=== PATIENT | male | born 1935 | race Caucasian/White ===

== ENCOUNTER 2019-12-27 05:19 | Inpatient (IN) | payer MEDICARE, BC ==
[2019-12-19 10:52] LABS: BASOPHILS # (AUTO) 0.1 X10'3 (0-0.2); BASOPHILS % (AUTO) 1.3 % (0-1); EOSINOPHILS # (AUTO) 0.3 X10'3 (0-0.9); EOSINOPHILS % (AUTO) 4.5 % (0-6); LYMPHOCYTES % (AUTO) 27.6 % (21-51); MEAN CORPUSCULAR HEMOGLOBIN 29.6 PG (27.0-31.0); MEAN CORPUSCULAR VOLUME 89.6 FL (78-98); MEAN PLATELET VOLUME 9.5 FL (7.4-10.4); MONOCYTES # (AUTO) 0.5 X10'3 (0-0.9); MONOCYTES % (AUTO) 6.9 % (2-12); NEUTROPHILS # (AUTO) 4.4 X10'3 (1.8-7.7); NEUTROPHILS % (AUTO) 59.7 % (42-75); PRE OP HEMATOCRIT 39.6 % (42.0-52.0); PRE OP HEMOGLOBIN 13.1 g/dL (14.0-17.9); PRE OP PLATELET COUNT 265 X10'3 (140-440); RED BLOOD COUNT 4.42 X10'6 (4.70-6.10); RED CELL DISTRIBUTION WIDTH 14.5 % (11.5-14.5)
[2019-12-19 11:03] LABS: PRE OP INR 1.1 INR; PRE OP PROTIME 11.2 SECONDS (9.0-12.0)
[2019-12-19 11:05] LABS: ALBUMIN 3.6 G/DL (3.4-5.0); ALBUMIN/GLOBULIN RATIO 0.9 (1.1-1.5); ALKALINE PHOSPHATASE 111 IU/L (46-116); BLOOD UREA NITROGEN 47 MG/DL (7-18); BUN/CREATININE RATIO 24.4 (5.4-32.0); CHLORIDE 106 MMOL/L (99-107); CREATININE 1.93 MG/DL (0.60-1.10); PRE OP ALT 42 U/L (30-65); PRE OP ANION GAP 7 (8-16); PRE OP AST 15 U/L (10-37); PRE OP BILIRUB, TOTAL 0.2 MG/DL (0.0-1.0); PRE OP GLUCOSE 148 MG/DL (70-104); PRE OP POTASSIUM 5.7 MMOL/L (3.4-5.1); PRE OP SODIUM 138 MMOL/L (135-145); TOTAL CARBON DIOXIDE 25.1 MMOL/L (24-32); TOTAL PROTEIN 7.5 G/DL (6.4-8.2); eGFR 33 ML/MIN
[2019-12-19 12:36] LABS: HEMOGLOBIN A1C 7.1 % (4.5-6.2)
[2019-12-27] VITALS (17 sets, daily range): BP systolic 122–167; BP diastolic 50–85
[~2019-12-27] VITALS: Ht 182.9 cm; Wt 117.9 kg
[~2019-12-27 05:19] MED LIST: BENA1TAB14 PO; DICL75TA5 PO; FURO20TA4 PO; GABA600T13 PO; GLIM4TAB7 PO; INSU100I40 SUBCUT; LOVA40TA2 PO; OMEP40CA13 PO; SITA1TBM7 PO; ringers solution, lacted 1,000 ML IV SCH
[2019-12-27] MEDS ORDERED: famotidine 20mg tablet PO ONE (05:30)
[2019-12-27] MEDS ORDERED: vancomycin 1,500 MG in NS 300ml IV soln IV ONE (05:30)
[2019-12-27] MEDS ORDERED: ceFAZolin 2gm in dextrose, iso 50 ML IV ONE (05:30)
[2019-12-27] MEDS ORDERED: LIDOcaine 1% (10mg/ml) 2ml vial ONE (05:42)
[2019-12-27] MEDS ORDERED: TRANEXAMIC ACID 1 GM IN NACL,ISO-OS 100 ML IV ONE (06:00)
[2019-12-27 06:40] LABS: ISTAT CREATININE 2.1 mg/dL (0.8-1.3); ISTAT HGB 12.9 g/dl (14.0-18.0); ISTAT IONIZED CALCIUM 1.27 mmol/L (1.03-1.32); ISTAT K 5.1 mmol/L (3.5-5.1); POC BUN/CREATININE RATIO 19.5 (5.4-32.0)
[2019-12-27] MEDS ORDERED: ceFAZolin inj. 3,000 MG in sodium chloride irrig. sol 3,000 ML IR ONE ×2 (06:40→07:00)
[2019-12-27] MEDS ORDERED: normal saline 1000ml 1,000 ML IV SCH (06:55)
[2019-12-27] MEDS ORDERED: ASPI-529 PO (07:03)
[2019-12-27] MEDS ORDERED: fentaNYL/PF 50MCG/1 ML 2ML syringe ONE (07:31)
[2019-12-27] MEDS ORDERED: MIDAZolam 5mg/5ml vial ONE (07:31)
[2019-12-27] MEDS ORDERED: propofol inj 20 ML IV ONE (08:00)
[2019-12-27] MEDS ORDERED: morphine 2 MG/ML inj. syringe IV PRN (09:10)
[2019-12-27] MEDS ORDERED: ROPIVAcaine 0.2% (10 MG/5 ML) BOLUS INJECTION ADDCANAL PRN (09:10)
[2019-12-27] MEDS ORDERED: ringers solution, lacted 1,000 ML IV SCH (09:10)
[2019-12-27] MEDS ORDERED: ondansetron/PF 4mg/2ml inj IV PRN ×2 (09:10→10:50)
[2019-12-27] MEDS ORDERED: proCHLORperazine 10 MG/2 ml inj IV PRN (09:10)
[2019-12-27] MEDS ORDERED: meperidine/PF 25mg/ml syringe IV PRN ×3 (09:10)
[2019-12-27] MEDS ORDERED: morphine 4 MG/ML inj SYRINge IV PRN (09:10)
[2019-12-27] MEDS ORDERED: ROPIVAcaine 0.5% (5mg/ml) 30ml vial ONE (10:04)
[2019-12-27 10:05] LABS: APPEARANCE,SYNOVIAL FLUID HAZY; COLOR,SYNOVIAL FLUID YELLOW
[2019-12-27 10:06] LABS: LYMPHOCYTES,SYNOVIAL FLUID 84 % (0-75); MONOCYTES,SYNOVIAL FLUID 3 % (0-0); NEUTROPHILS,SYNOVIAL FLUID 3 % (0-25); SYN RBC 1020 /CU MM (0); SYN WBC 550 /CU MM (0-200); SYNOVIAL LINING CELLS FEW
[2019-12-27] MEDS ORDERED: diphenhydrAMINE 50 mg/ml inj ONE (10:06)
[2019-12-27] MEDS ORDERED: dexamethasone sod phosphate 4mg/ml inj. ONE (10:06)
[2019-12-27] MEDS ORDERED: acetaminophen 325mg tablet PO PRN (10:50)
[2019-12-27] MEDS ORDERED: magnesium hydroxide 30ml (MOM) UD suspension PO PRN (10:50)
[2019-12-27] MEDS ORDERED: bisacodyl 10mg suppository rectal RC PRN (10:50)
[2019-12-27] MEDS ORDERED: diphenhydrAMINE 25mg capsule PO PRN ×2 (10:50)
[2019-12-27] MEDS ORDERED: glucagon, human recombinant 1mg kit SUBCUT PRN (10:55)
[2019-12-27] MEDS ORDERED: dextrose 50%-water 50ml dispensing syringe IV PRN ×2 (10:55)
[2019-12-27] MEDS ORDERED: dextrose ORAL solution 15 GM/59 ML bottle PO PRN ×2 (10:55)
[2019-12-27] MEDS ORDERED: MESSAGE TO PHARMACY PO ONE (10:55)
--- NOTE | 2019-12-27 10:55 | NUR ---
Received from OR via BED, accompanied by Anesthesiologist and report given by Anesthesiolgist. PATIENT A&OX4, DENIES PAIN, V/S WNL, NEUROVASCULAR CHECKS INTACT, SCD ON, 20G PIV LUE, LEFT ELAINA DRESSING KNEE WRAP POWDER PACK CDI W/ ONQ BALL AT 4ML/HR. SENSATIONS AT T12
[2019-12-27] MEDS: ROPIVAcaine 0.2%/PF PUMP/bolus 550 ML ADDCANAL SCH (10:59)
--- NOTE | 2019-12-27 11:45 | NUR ---
PATIENT A&OX4, DENIES PAIN, V/S WNL, NEUROVASCULAR CHECKS INTACT, SCD ON, 20G PIV LUE, LEFT ELAINA DRESSING KNEE WRAP POWDER PACK CDI W/ ONQ BALL AT 4ML/HR. FULL . SENSATIONS .PATIENT TAKEN TO 4007 WITH ALL BELONGINGS AND HOOKED UP TO MONITORS IN ROOM AND REPORT GIVEN TO CLIENT SUPPORT ASSOCIATE WHO HAS TAKEN OVER PATIENT CARE.
--- NOTE | 2019-12-27 14:58 | NUR ---
Pt with A1c 7.1%, DM education not warranted at this time given well controlled for geriatric age. Will continue to follow. Addendum: 12/27/19 at [address] Amended: Links added.
[2019-12-27] MEDS: aspirin 81mg tablet.DR PO SCH (16:48)
[2019-12-27] MEDS: ceFAZolin/D5W- 1GM premix 50 ML IV SCH (16:49)
[2019-12-27] MEDS: normal saline 1000ml 1,000 ML IV SCH ×2 (16:49→21:00)
[2019-12-27] MEDS: HYDROcodone/acetaminophen 10/325mg tab PO PRN ×3 (17:46→22:12)
--- NOTE | 2019-12-27 17:50 | NUR ---
One norco given at 17:46, meditech went down before "save" was processed. Selected "administer' from nurse's station computer to ensure nuclear medicine tech was documented. per private secretary, the entire Wifi system was down. [employer] was not working until approximately 22:00 (per dowel pointer staff). Spoke with pharmacy regarding meditech issue. Currently working to fix the issue.
--- NOTE | 2019-12-27 18:30 | NUR ---
Problems reprioritized. Patient report given, questions answered & plan of care reviewed with Dennise.
--- NOTE | 2019-12-27 18:35 | NUR ---
Patient in room ORTHO 4007. I have received report from Nelsy WERNER and had the opportunity to ask questions and assume patient care.
[2019-12-27] MEDS: insulin Lispro (HumaLOG) vial - multi-dose SQ SCH (18:57)
[2019-12-27] MEDS: sennosides 8.6mg tablet PO SCH (20:54)
[2019-12-27] MEDS: gabapentin 400mg capsule PO SCH (20:54)
[2019-12-27] MEDS: lisinopril 20mg tablet PO SCH (20:55)
[2019-12-27] MEDS: HYDROchlorothiazide 12.5mg capsule PO SCH (20:58)
[2019-12-27] MEDS: HYDROmorphone 1 mg/ml syringe IV PRN (21:01)
[2019-12-27] MEDS: insulin glargine (Lantus) pen - multi-dose SQ SCH (21:08)
[2019-12-28] MEDS: ceFAZolin/D5W- 1GM premix 50 ML IV SCH (00:08)
[2019-12-28] MEDS: normal saline 1000ml 1,000 ML IV SCH ×2 (01:22→17:00)
[2019-12-28 02:00] VITALS: BP 148/60
[2019-12-28] MEDS: HYDROcodone/acetaminophen 10/325mg tab PO PRN ×5 (02:36→21:23)
[2019-12-28] MEDS: HYDROmorphone 1 mg/ml syringe IV PRN (05:43)
--- NOTE | 2019-12-28 06:23 | NUR ---
Problems reprioritized. Patient report given, questions answered & plan of care reviewed with Nelsy WERNER.
[2019-12-28 06:28] VITALS: BP 151/56
--- NOTE | 2019-12-28 06:29 | NUR ---
Patient in room ORTHO 4007. I have received report from [facility] and had the opportunity to ask questions and assume patient care.
[2019-12-28] MEDS: aspirin 81mg tablet.DR PO SCH ×2 (07:21→17:22)
[2019-12-28] MEDS: pantoprazole 40mg Tablet.DR PO SCH (07:22)
[2019-12-28] MEDS: HYDROchlorothiazide 12.5mg capsule PO SCH ×2 (07:23→20:33)
[2019-12-28] MEDS: furosemide 20MG tablet PO SCH (07:23)
[2019-12-28] MEDS: lisinopril 20mg tablet PO SCH ×2 (07:24→20:33)
--- NOTE | 2019-12-28 08:34 | NUR ---
DM consult: Patient's A1c has already been addressed, see below. Pt with A1c 7.1%, DM education not warranted at this time given well controlled for geriatric age. Will continue to follow. Addendum: 12/28/19 at [address] Amended: Links added.
[2019-12-28 08:38] LABS: BASOPHILS # (AUTO) 0.1 X10'3 (0-0.2); BASOPHILS % (AUTO) 0.8 % (0-1); EOSINOPHILS # (AUTO) 0.1 X10'3 (0-0.9); HEMATOCRIT 36.6 % (42.0-52.0); HEMOGLOBIN 11.9 g/dl (14.0-17.9); LYMPHOCYTES # (AUTO) 1.9 X10'3 (1.1-4.8); LYMPHOCYTES % (AUTO) 22.3 % (21-51); MEAN CORPUSCULAR HEMOGLOBIN 29.1 PG (27.0-31.0); MEAN CORPUSCULAR HGB CONC 32.6 g/dL (33.0-36.5); MEAN CORPUSCULAR VOLUME 89.3 FL (78-98); MEAN PLATELET VOLUME 9.2 FL (7.4-10.4); MONOCYTES # (AUTO) 0.9 X10'3 (0-0.9); MONOCYTES % (AUTO) 10.8 % (2-12); NEUTROPHILS # (AUTO) 5.6 X10'3 (1.8-7.7); NEUTROPHILS % (AUTO) 65.1 % (42-75); PLATELET COUNT 281 X10'3 (140-440); RED CELL DISTRIBUTION WIDTH 14.3 % (11.5-14.5); WHITE BLOOD COUNT 8.7 X10'3 (4.5-11.0)
[2019-12-28] MEDS: insulin Lispro (HumaLOG) vial - multi-dose SQ SCH ×4 (08:39→21:22)
[2019-12-28 09:06] LABS: ALANINE AMINOTRANSFERASE 27 U/L (12-78); ALBUMIN 3.4 G/DL (3.4-5.0); ALBUMIN/GLOBULIN RATIO 0.9 (1.1-1.5); ALKALINE PHOSPHATASE 107 IU/L (46-116); ANION GAP 11 (8-16); ASPARTATE AMINO TRANSFERASE 13 U/L (10-37); BILIRUBIN,TOTAL 0.3 MG/DL (0.1-1.0); BLOOD UREA NITROGEN 26 MG/DL (7-18); BUN/CREATININE RATIO 15.2 (5.4-32.0); CALCIUM 8.9 MG/DL (8.5-10.1); CHLORIDE 107 MMOL/L (99-107); CREATININE 1.71 MG/DL (0.60-1.10); GLUCOSE 206 MG/DL (70-104); SODIUM 140 MMOL/L (135-145); TOTAL CARBON DIOXIDE 22.4 MMOL/L (24-32); TOTAL PROTEIN 7.1 G/DL (6.4-8.2); eGFR 38 ML/MIN
[2019-12-28 10:02] VITALS: BP 98/43
[2019-12-28 14:00] VITALS: BP 139/86
[2019-12-28 18:00] VITALS: BP 123/52
--- NOTE | 2019-12-28 18:03 | NUR ---
Problems reprioritized. Patient report given, questions answered & plan of care reviewed with Dennise.
--- NOTE | 2019-12-28 18:30 | NUR ---
Patient in room ORTHO 4007. I have received report from Nelsy WERNER and had the opportunity to ask questions and assume patient care.
[2019-12-28] MEDS: gabapentin 400mg capsule PO SCH (20:33)
[2019-12-28] MEDS: sennosides 8.6mg tablet PO SCH (20:34)
[2019-12-28] MEDS: insulin glargine (Lantus) pen - multi-dose SQ SCH (21:20)
[2019-12-29] MEDS: normal saline 1000ml 1,000 ML IV SCH (03:00)
[2019-12-29] MEDS: ROPIVAcaine 0.2%/PF PUMP/bolus 550 ML ADDCANAL SCH (03:24)
[2019-12-29] MEDS: HYDROcodone/acetaminophen 10/325mg tab PO PRN (05:49)
[2019-12-29 06:05] LABS: BASOPHILS % (AUTO) 0.6 % (0-1); EOSINOPHILS # (AUTO) 0.1 X10'3 (0-0.9); EOSINOPHILS % (AUTO) 1.4 % (0-6); HEMATOCRIT 33.3 % (42.0-52.0); HEMOGLOBIN 11.2 g/dl (14.0-17.9); LYMPHOCYTES # (AUTO) 1.5 X10'3 (1.1-4.8); LYMPHOCYTES % (AUTO) 18.2 % (21-51); MEAN CORPUSCULAR HGB CONC 33.7 g/dL (33.0-36.5); MEAN CORPUSCULAR VOLUME 88.8 FL (78-98); MEAN PLATELET VOLUME 9.4 FL (7.4-10.4); MONOCYTES % (AUTO) 12.1 % (2-12); NEUTROPHILS # (AUTO) 5.7 X10'3 (1.8-7.7); NEUTROPHILS % (AUTO) 67.7 % (42-75); PLATELET COUNT 254 X10'3 (140-440); RED BLOOD COUNT 3.75 X10'6 (4.70-6.10); RED CELL DISTRIBUTION WIDTH 14.4 % (11.5-14.5); WHITE BLOOD COUNT 8.4 X10'3 (4.5-11.0)
--- NOTE | 2019-12-29 06:15 | NUR ---
Patient in room ORTHO 4007. I have received report from [facility] and had the opportunity to ask questions and assume patient care.
--- NOTE | 2019-12-29 06:31 | NUR ---
Problems reprioritized. Patient report given, questions answered & plan of care reviewed with Nelsy WERNER.
[2019-12-29 06:36] VITALS: BP 143/64
[2019-12-29 07:02] LABS: ALANINE AMINOTRANSFERASE 88 U/L (12-78); ALBUMIN 3.1 G/DL (3.4-5.0); ALBUMIN/GLOBULIN RATIO 0.8 (1.1-1.5); ALKALINE PHOSPHATASE 110 IU/L (46-116); ANION GAP 11 (8-16); ASPARTATE AMINO TRANSFERASE 90 U/L (10-37); BILIRUBIN,TOTAL 0.6 MG/DL (0.1-1.0); BLOOD UREA NITROGEN 27 MG/DL (7-18); BUN/CREATININE RATIO 14.7 (5.4-32.0); CALCIUM 8.9 MG/DL (8.5-10.1); CHLORIDE 107 MMOL/L (99-107); CREATININE 1.84 MG/DL (0.60-1.10); GLUCOSE 149 MG/DL (70-104); POTASSIUM 4.7 MMOL/L (3.5-5.1); SODIUM 140 MMOL/L (135-145); TOTAL CARBON DIOXIDE 22.5 MMOL/L (24-32); TOTAL PROTEIN 6.9 G/DL (6.4-8.2); eGFR 35 ML/MIN
[2019-12-29] MEDS: pantoprazole 40mg Tablet.DR PO SCH (07:36)
[2019-12-29] MEDS: aspirin 81mg tablet.DR PO SCH (07:36)
[2019-12-29] MEDS: HYDROchlorothiazide 12.5mg capsule PO SCH (07:37)
[2019-12-29] MEDS: furosemide 20MG tablet PO SCH (07:37)
[2019-12-29] MEDS: lisinopril 20mg tablet PO SCH (07:38)
[2019-12-29] MEDS: insulin Lispro (HumaLOG) vial - multi-dose SQ SCH (08:58)
[2019-12-29 10:01] VITALS: BP 131/75
--- NOTE | 2019-12-29 11:15 | NUR ---
Reviewed discharge instructions with pt. Pt verbalized understanding. Pt was dressed and wheeled downstairs to be driven home by his spouse. All of pt's belongings were returned to pt.
== END 2019-12-29 11:10 | disposition home or self-care (01) | DRG 468 ==
LOC: PAS IN 05:19 → UNDOADMIN 05:19 → EDSTATUS 07:30 → PAS IN 10:47 → ORTHO 4S 11:30 → PAS IN 11:30
PROVIDERS: ADMIT Orthopaedic Surgery; ATTEND Orthopaedic Surgery
PROC: 0SRW0JZ Replacement of Left Knee Joint, Tibial Surface with Synthetic Substitute, Open Approach (ICD-10-PCS; 2019-12-27)
PROC: 3E0T3BZ Introduction of Anesthetic Agent into Peripheral Nerves and Plexi, Percutaneous Approach (ICD-10-PCS; 2019-12-27)
PROC: 0SPW0JZ Removal of Synthetic Substitute from Left Knee Joint, Tibial Surface, Open Approach (ICD-10-PCS; principal; 2019-12-27 07:30)
DX: T84.093A Other mechanical complication of internal left knee prosthesis, initial encounter (principal); Y79.2 Prosthetic and other implants, materials and accessory orthopedic devices associated with adverse incidents; Y92.89 Other specified places as the place of occurrence of the external cause; Z79.899 Other long term (current) drug therapy; Z79.82 Long term (current) use of aspirin; D50.0 Iron deficiency anemia secondary to blood loss (chronic)
CPT/HCPCS: 36415; 80047; 80053; 82948; 83036; 85025; 85610; 85730; 86885; 86900; 86901; 86920; 87070; 87075; 87081; 87635; 89051; 97110; 97161; 97530; A6223; A6258; A6449; A7000; A9272; C1713; C1758; C1776; G0378; J0690; J1100; J1170; J1200; J1815; J2001; J2250; J2704; J2795; J3010; J3370; J7030; J7040; J7120; Q0163

== ENCOUNTER 2023-10-25 12:15 | Inpatient (IN) | payer MEDICARE, BC ==
[~2023-10-25] VITALS: Ht 182.9 cm; Wt 107.0 kg
[~2023-10-25 12:15] MED LIST changes: +ATOR-2 PO; -BENA1TAB14 PO; +BENA20TA2 PO; +CARV6.253 PO; +DICL-182 PO; -DICL75TA5 PO; +FLO0.4C PO; -FURO20TA4 PO; +GLIM4TAB PO; -GLIM4TAB7 PO; +HUM100VI4 SQ; -INSU100I40 SUBCUT; +KEN0.1O TOP; -LOVA40TA2 PO; -OMEP40CA13 PO; +OMEP40CA21 PO; -SITA1TBM7 PO; -ringers solution, lacted 1,000 ML IV SCH
[2023-10-25] MEDS: ondansetron 4mg rapidly disintigrating tab PO ONE (13:42)
[2023-10-25] MEDS: HYDROcodone/acetaminophen 5mg/325mg tablet PO ONE ×2 (13:43→13:48)
[2023-10-25 15:40] LABS: BASOPHILS # (AUTO) 0.1 X10'3 (0-0.2); BASOPHILS % (AUTO) 1.3 % (0-1); EOSINOPHILS # (AUTO) 0.2 X10'3 (0-0.9); EOSINOPHILS % (AUTO) 4.2 % (0-6); HEMATOCRIT 39.5 % (42.0-52.0); HEMOGLOBIN 12.8 g/dl (14.0-17.9); LYMPHOCYTES # (AUTO) 1.5 X10'3 (1.1-4.8); LYMPHOCYTES % (AUTO) 25.5 % (21-51); MEAN CORPUSCULAR HEMOGLOBIN 29.2 PG (27.0-31.0); MEAN CORPUSCULAR HGB CONC 32.3 g/dL (33.0-36.5); MEAN CORPUSCULAR VOLUME 90.5 FL (78-98); MEAN PLATELET VOLUME 8.9 FL (7.4-10.4); MONOCYTES # (AUTO) 0.5 X10'3 (0-0.9); MONOCYTES % (AUTO) 8.1 % (2-12); NEUTROPHILS # (AUTO) 3.5 X10'3 (1.8-7.7); NEUTROPHILS % (AUTO) 60.9 % (42-75); PLATELET COUNT 286 X10'3 (140-440); RED BLOOD COUNT 4.37 X10'6 (4.70-6.10); RED CELL DISTRIBUTION WIDTH 15.1 % (11.5-14.5); WHITE BLOOD COUNT 5.8 X10'3 (4.5-11.0)
[2023-10-25 15:52] LABS: ALANINE AMINOTRANSFERASE 30 U/L (12-78); ALBUMIN 3.1 G/DL (3.4-5.0); ALBUMIN/GLOBULIN RATIO 0.8 (1.1-1.5); ALKALINE PHOSPHATASE 94 IU/L (46-116); ANION GAP 9 (8-16); ASPARTATE AMINO TRANSFERASE 16 U/L (10-37); BILIRUBIN,TOTAL 0.2 MG/DL (0.1-1.0); BLOOD UREA NITROGEN 31 MG/DL (7-18); BUN/CREATININE RATIO 17.4 (10.0-20.0); CALCIUM 8.8 MG/DL (8.5-10.1); CHLORIDE 108 MMOL/L (99-107); CREATININE 1.78 MG/DL (0.60-1.10); GLUCOSE 123 MG/DL (70-104); POTASSIUM 5.9 MMOL/L (3.5-5.1); SODIUM 138 MMOL/L (135-145); TOTAL CARBON DIOXIDE 21.4 MMOL/L (24-32); TOTAL PROTEIN 6.8 G/DL (6.4-8.2); eCRCL 32 ML/MIN; eGFR 36 ML/MIN
[2023-10-25] MEDS ORDERED: magnesium hydroxide 30ml (MOM) UD suspension PO PRN (16:30)
[2023-10-25] MEDS ORDERED: HYDROmorphone/PF 0.2 MG/ML SYRINGE IV PRN (16:30)
[2023-10-25] MEDS ORDERED: acetaminophen 325mg tablet PO PRN ×2 (16:30)
[2023-10-25] MEDS ORDERED: dextrose 50%-water 50ml dispensing syringe IV PRN ×2 (16:30)
[2023-10-25] MEDS ORDERED: mag hydrox/Alum hydrox/simeth 30ml oral suspension PO PRN (16:30)
[2023-10-25] MEDS ORDERED: ondansetron/PF 4mg/2ml inj IV PRN (16:30)
[2023-10-25] MEDS ORDERED: magnesium sulf-water 4G/100mL 100 ML IV PRN (16:30)
[2023-10-25] MEDS ORDERED: DEXTROSE 15 GM of carb/4 tabs (each vial/BOTTLE has 4 tablets) PO PRN ×2 (16:30)
[2023-10-25] MEDS ORDERED: potassium Cl 20 mEq SR tablet PO PRN ×2 (16:30)
[2023-10-25] MEDS ORDERED: glucagon, human recombinant 1mg kit SUBCUT PRN (16:30)
[2023-10-25] MEDS ORDERED: magnesium sulf-water 2g/50mL 50 ML IV PRN (16:30)
[2023-10-25] MEDS ORDERED: potassium Cl 40MEQ/1/2NS 520ml 520 ML IV PRN (16:30)
[2023-10-25] MEDS: INSULIN LISPRO 100 UNIT/ML INSULN.PEN MULTI-DOSE SQ SCH (17:00)
[2023-10-25] MEDS: calcium chloride 100 MG/1 ML inj IV ONE (17:30)
[2023-10-25] MEDS ORDERED: hydrALAZINE 20mg/ml inj. IV PRN (17:35)
[2023-10-25] MEDS: HYDROcodone/acetaminophen 5mg/325mg tablet PO PRN (17:59)
[2023-10-25] MEDS: docusate sod 100mg capsule PO SCH (20:00)
[2023-10-25] MEDS: heparin, porcine 5000 units/ml vial SQ SCH (20:00)
[2023-10-25] MEDS: K and/or MAG REPLACEMENT MC SCH (20:00)
[2023-10-25] MEDS: oxyCODONE/APAP 10/325mg tablet PO PRN (21:07)
[2023-10-25] MEDS: normal saline 1000ml 1,000 ML IV SCH (21:17)
[2023-10-25] MEDS: CALCIUM GLUC 1gm/50ml NACL,iso 50 ML IV STA (21:19)
[2023-10-25 21:40] LABS: ALBUMIN 3.1 G/DL (3.4-5.0); ANION GAP 6 (8-16); BLOOD UREA NITROGEN 30 MG/DL (7-18); BUN/CREATININE RATIO 16.7 (10.0-20.0); CHLORIDE 109 MMOL/L (99-107); GLUCOSE 81 MG/DL (70-104); POTASSIUM 5.5 MMOL/L (3.5-5.1); SODIUM 142 MMOL/L (135-145); eCRCL 32 ML/MIN; eGFR 36 ML/MIN
[2023-10-25] MEDS: dextrose 50%-water 50ml dispensing syringe IV ONE (22:41)
[2023-10-25] MEDS: insulin regular, human 10 units/0.1 ml syringe IV ONE (22:53)
[2023-10-26] MEDS: albuterol 2.5 MG/3 ML nebule CONTNEB ONE
[2023-10-26] MEDS: HYDROcodone/acetaminophen 10/325mg tab PO PRN (02:46)
[2023-10-26 02:50] VITALS: BP 175/68; PULSE 67; RESP 16; TEMP 98.3; O2SAT 98
[2023-10-26] MEDS ORDERED: GABA300C PO (04:05)
[2023-10-26] MEDS ORDERED: FURO-150 PO (04:05)
[2023-10-26 05:36] LABS: BASOPHILS # (AUTO) 0.1 X10'3 (0-0.2); BASOPHILS % (AUTO) 0.8 % (0-1); EOSINOPHILS # (AUTO) 0.2 X10'3 (0-0.9); EOSINOPHILS % (AUTO) 3.5 % (0-6); HEMATOCRIT 37.4 % (42.0-52.0); HEMOGLOBIN 12.3 g/dl (14.0-17.9); LYMPHOCYTES # (AUTO) 1.7 X10'3 (1.1-4.8); LYMPHOCYTES % (AUTO) 23.9 % (21-51); MEAN CORPUSCULAR HEMOGLOBIN 29.8 PG (27.0-31.0); MEAN CORPUSCULAR HGB CONC 32.8 g/dL (33.0-36.5); MEAN CORPUSCULAR VOLUME 90.8 FL (78-98); MONOCYTES # (AUTO) 0.6 X10'3 (0-0.9); MONOCYTES % (AUTO) 9.1 % (2-12); NEUTROPHILS # (AUTO) 4.3 X10'3 (1.8-7.7); NEUTROPHILS % (AUTO) 62.7 % (42-75); PLATELET COUNT 268 X10'3 (140-440); RED BLOOD COUNT 4.12 X10'6 (4.70-6.10); RED CELL DISTRIBUTION WIDTH 14.8 % (11.5-14.5); WHITE BLOOD COUNT 6.9 X10'3 (4.5-11.0)
[2023-10-26 05:42] LABS: ALANINE AMINOTRANSFERASE 29 U/L (12-78); ALBUMIN 2.9 G/DL (3.4-5.0); ALBUMIN/GLOBULIN RATIO 0.9 (1.1-1.5); ALKALINE PHOSPHATASE 87 IU/L (46-116); ANION GAP 10 (8-16); ASPARTATE AMINO TRANSFERASE 15 U/L (10-37); BILIRUBIN,TOTAL 0.2 MG/DL (0.1-1.0); BLOOD UREA NITROGEN 27 MG/DL (7-18); BUN/CREATININE RATIO 15.4 (10.0-20.0); CALCIUM 8.9 MG/DL (8.5-10.1); CHLORIDE 109 MMOL/L (99-107); CREATININE 1.75 MG/DL (0.60-1.10); GLUCOSE 180 MG/DL (70-104); MAGNESIUM 1.7 MG/DL (1.5-2.4); POTASSIUM 5.4 MMOL/L (3.5-5.1); SODIUM 142 MMOL/L (135-145); TOTAL CARBON DIOXIDE 23.5 MMOL/L (24-32); TOTAL PROTEIN 6.3 G/DL (6.4-8.2); eCRCL 33 ML/MIN; eGFR 37 ML/MIN
[2023-10-26 06:00] VITALS: BP 152/48; PULSE 71; RESP 13; TEMP 98.3; O2SAT 98
[2023-10-26 08:00] VITALS: RESP 18; O2SAT 98
[2023-10-26] MEDS: gabapentin 300mg capsule PO ONE (13:08)
[2023-10-26] MEDS: HYDROmorphone inj. 0.5 MG/0.5 ML DISP.SYRIN IV PRN (14:25)
[2023-10-26] MEDS: pneumococcal 23-VAL P-sac vacc 25 mcg/0.5ml vial IMVAC ONE (17:07)
[2023-10-26 18:00] VITALS: BP 158/65; PULSE 60; RESP 18; TEMP 97.4; O2SAT 98
[2023-10-26] MEDS: cyclobenzaprine 10mg tablet PO ONE (19:50)
[2023-10-26 20:00] VITALS: RESP 18; O2SAT 98
[2023-10-26] MEDS: carvedilol 6.25mg tablet PO SCH (20:58)
[2023-10-26] MEDS: gabapentin 300mg capsule PO SCH (20:58)
[2023-10-26] MEDS: atorvastatin 20mg tablet PO SCH (20:59)
[2023-10-26 22:00] VITALS: BP 158/75; PULSE 71; RESP 16; TEMP 97.2; O2SAT 99
[2023-10-27 07:11] LABS: BASOPHILS % (AUTO) 0.5 % (0-1); EOSINOPHILS # (AUTO) 0.2 X10'3 (0-0.9); EOSINOPHILS % (AUTO) 2.7 % (0-6); HEMATOCRIT 39.8 % (42.0-52.0); HEMOGLOBIN 12.7 g/dl (14.0-17.9); LYMPHOCYTES # (AUTO) 1.4 X10'3 (1.1-4.8); LYMPHOCYTES % (AUTO) 19.8 % (21-51); MEAN CORPUSCULAR HEMOGLOBIN 28.9 PG (27.0-31.0); MEAN CORPUSCULAR VOLUME 90.3 FL (78-98); MEAN PLATELET VOLUME 8.7 FL (7.4-10.4); MONOCYTES # (AUTO) 0.7 X10'3 (0-0.9); MONOCYTES % (AUTO) 10.2 % (2-12); NEUTROPHILS # (AUTO) 4.6 X10'3 (1.8-7.7); NEUTROPHILS % (AUTO) 66.8 % (42-75); PLATELET COUNT 275 X10'3 (140-440); RED BLOOD COUNT 4.41 X10'6 (4.70-6.10); RED CELL DISTRIBUTION WIDTH 14.4 % (11.5-14.5); WHITE BLOOD COUNT 6.9 X10'3 (4.5-11.0)
[2023-10-27 07:19] LABS: ALANINE AMINOTRANSFERASE 24 U/L (12-78); ALBUMIN 2.9 G/DL (3.4-5.0); ALBUMIN/GLOBULIN RATIO 0.8 (1.1-1.5); ALKALINE PHOSPHATASE 93 IU/L (46-116); ANION GAP 7 (8-16); ASPARTATE AMINO TRANSFERASE 13 U/L (10-37); BILIRUBIN,TOTAL 0.4 MG/DL (0.1-1.0); BLOOD UREA NITROGEN 22 MG/DL (7-18); CALCIUM 9.1 MG/DL (8.5-10.1); CHLORIDE 109 MMOL/L (99-107); CREATININE 1.57 MG/DL (0.60-1.10); GLUCOSE 183 MG/DL (70-104); MAGNESIUM 1.6 MG/DL (1.5-2.4); SODIUM 139 MMOL/L (135-145); TOTAL PROTEIN 6.5 G/DL (6.4-8.2); eCRCL 36 ML/MIN; eGFR 42 ML/MIN
[2023-10-27 07:22] LABS: POTASSIUM 6.1 MMOL/L (3.5-5.1)
[2023-10-27] MEDS: furosemide 20MG tablet PO SCH (07:32)
[2023-10-27] MEDS: pantoprazole 40mg Tablet.DR PO SCH (07:32)
[2023-10-27] MEDS ORDERED: calcium chloride 100 MG/1 ML inj IV ONE (07:50)
[2023-10-27] MEDS: albuterol 2.5 MG/3 ML nebule CONTNEB SCH (07:50)
[2023-10-27 08:00] VITALS: RESP 17; O2SAT 97
[2023-10-27] MEDS: insulin regular, human 10 units/0.1 ml syringe IV ONE (08:28)
[2023-10-27] MEDS: dextrose 50%-water 50ml dispensing syringe IV ONE (08:36)
[2023-10-27] MEDS: furosemide 40mg/4ml inj IV ONE (08:40)
[2023-10-27] MEDS: CALCIUM GLUC 1gm/50ml NACL,iso 50 ML IV ONE (08:41)
[2023-10-27 10:00] VITALS: BP 108/88; PULSE 56; RESP 16; TEMP 97.3; O2SAT 97
[2023-10-27] MEDS ORDERED: albuterol 2.5 MG/3 ML nebule CONTNEB PRN (13:35)
[2023-10-27 14:18] LABS: ANION GAP 7 (8-16); BLOOD UREA NITROGEN 24 MG/DL (7-18); BUN/CREATININE RATIO 13.5 (10.0-20.0); CALCIUM 9.4 MG/DL (8.5-10.1); CHLORIDE 107 MMOL/L (99-107); CREATININE 1.78 MG/DL (0.60-1.10); GLUCOSE 260 MG/DL (70-104); POTASSIUM 5.8 MMOL/L (3.5-5.1); SODIUM 135 MMOL/L (135-145); TOTAL CARBON DIOXIDE 21.2 MMOL/L (24-32); eCRCL 32 ML/MIN; eGFR 36 ML/MIN
[2023-10-27 18:00] VITALS: BP 135/60; PULSE 84; RESP 18; TEMP 97.9; O2SAT 98
[2023-10-27 20:00] VITALS: RESP 18; O2SAT 98
[2023-10-27 22:00] VITALS: BP 130/55; PULSE 85; RESP 16; TEMP 97.5; O2SAT 95
[2023-10-28 06:40] VITALS: BP 134/66; PULSE 81; RESP 15; TEMP 97.3; O2SAT 96
[2023-10-28 06:43] LABS: BASOPHILS # (AUTO) 0.1 X10'3 (0-0.2); BASOPHILS % (AUTO) 0.8 % (0-1); EOSINOPHILS # (AUTO) 0.2 X10'3 (0-0.9); EOSINOPHILS % (AUTO) 2.7 % (0-6); HEMATOCRIT 39.6 % (42.0-52.0); HEMOGLOBIN 12.7 g/dl (14.0-17.9); LYMPHOCYTES # (AUTO) 1.9 X10'3 (1.1-4.8); MEAN CORPUSCULAR HEMOGLOBIN 28.9 PG (27.0-31.0); MEAN CORPUSCULAR HGB CONC 32.1 g/dL (33.0-36.5); MEAN CORPUSCULAR VOLUME 90.1 FL (78-98); MEAN PLATELET VOLUME 8.9 FL (7.4-10.4); MONOCYTES # (AUTO) 0.8 X10'3 (0-0.9); MONOCYTES % (AUTO) 10.7 % (2-12); NEUTROPHILS # (AUTO) 4.9 X10'3 (1.8-7.7); NEUTROPHILS % (AUTO) 61.8 % (42-75); PLATELET COUNT 271 X10'3 (140-440); RED BLOOD COUNT 4.39 X10'6 (4.70-6.10); RED CELL DISTRIBUTION WIDTH 14.5 % (11.5-14.5); WHITE BLOOD COUNT 7.9 X10'3 (4.5-11.0)
[2023-10-28 06:59] LABS: ALANINE AMINOTRANSFERASE 25 U/L (12-78); ALBUMIN 2.9 G/DL (3.4-5.0); ALBUMIN/GLOBULIN RATIO 0.8 (1.1-1.5); ALKALINE PHOSPHATASE 95 IU/L (46-116); ANION GAP 9 (8-16); ASPARTATE AMINO TRANSFERASE 10 U/L (10-37); BILIRUBIN,TOTAL 0.4 MG/DL (0.1-1.0); BLOOD UREA NITROGEN 29 MG/DL (7-18); BUN/CREATININE RATIO 16.2 (10.0-20.0); CALCIUM 9.2 MG/DL (8.5-10.1); CHLORIDE 107 MMOL/L (99-107); CREATININE 1.79 MG/DL (0.60-1.10); GLUCOSE 207 MG/DL (70-104); MAGNESIUM 1.4 MG/DL (1.5-2.4); POTASSIUM 5.4 MMOL/L (3.5-5.1); SODIUM 139 MMOL/L (135-145); TOTAL CARBON DIOXIDE 23.1 MMOL/L (24-32); TOTAL PROTEIN 6.7 G/DL (6.4-8.2); eCRCL 32 ML/MIN; eGFR 36 ML/MIN
[2023-10-28 08:00] VITALS: RESP 17; O2SAT 97
[2023-10-28] MEDS: magnesium Cl slow-release 64mg tablet PO PRN (09:35)
[2023-10-28 10:00] VITALS: BP 100/60; PULSE 76; RESP 18; TEMP 97.6; O2SAT 92
[2023-10-28] MEDS ORDERED: OXYC1TAB17 PO (11:30)
[2023-10-28] MEDS ORDERED: gabapentin 300mg capsule PO SCH (11:37)
== END 2023-10-28 13:05 | disposition home health service (06) | DRG 641 ==
LOC: ER 12:16 → ED HOLD 16:37 → ORTHO 4S 10-26 02:27
PROVIDERS: ADMIT Family Medicine; ATTEND Family Medicine
PROC: BW2G1ZZ Computerized Tomography (CT Scan) of Pelvic Region using Low Osmolar Contrast (ICD-10-PCS; principal; 2023-10-25)
PROC: 3E0234Z Introduction of Serum, Toxoid and Vaccine into Muscle, Percutaneous Approach (ICD-10-PCS; 2023-10-25)
DX: E87.5 Hyperkalemia (principal); E11.22 Type 2 diabetes mellitus with diabetic chronic kidney disease; E78.5 Hyperlipidemia, unspecified; I12.9 Hypertensive chronic kidney disease with stage 1 through stage 4 chronic kidney disease, or unspecified chronic kidney disease; M24.89 Other specific joint derangement of other specified joint, not elsewhere classified; G89.29 Other chronic pain; Z96.653 Presence of artificial knee joint, bilateral; K21.9 Gastro-esophageal reflux disease without esophagitis; M54.9 Dorsalgia, unspecified; N18.32 Chronic kidney disease, stage 3b; Z79.4 Long term (current) use of insulin; Z79.84 Long term (current) use of oral hypoglycemic drugs; Z79.899 Other long term (current) drug therapy; Z98.1 Arthrodesis status; Z85.828 Personal history of other malignant neoplasm of skin
CPT/HCPCS: 36415; 72131; 72192; 73502; 80048; 80053; 82948; 83036; 83735; 85025; 87081; 93005; 97110; 97116; 97161; 97530; 97535; 99285; 99291; A6212; A6222; A6258; A6402; A6446; A6449; A6590; G0378; J0610; J1170; J1644; J1815; J1940; J3490; J7030